=== PATIENT | female | born 1990 | race Caucasian/White ===

== ENCOUNTER 2017-01-17 17:16 | Emergency (ER) | payer OTHER ==
[~2017-01-17 17:16] MED LIST: AMBIEN10 MG PO; CLONAZEPAM1 MG PO; COLACE 100MG C100 MG PO; NORCO 5-325 TA1 EACH PO; VELIVET PO; VIIBRYD40 MG PO
[2017-01-17 18:16] LABS: HEMOGLOBIN 14.8 gm/dl (12.3-15.3); RED BLOOD COUNT 4.75 M/UL (4.00-5.10); WHITE BLOOD COUNT 15.7 K/UL (4.5-11.0)
[2017-01-17 18:33] LABS: BUN/CREATININE RATIO 15 (0-10)
== END 2017-01-17 21:26 | disposition home or self-care (01) ==
LOC: ER1 17:16
PROVIDERS: Emergency Medicine
DX: O20.0 Threatened abortion (principal); Z3A.08 8 weeks gestation of pregnancy; Z88.2 Allergy status to sulfonamides
CPT/HCPCS: 36415; 76817; 80053; 84702; 85025; 86900; 86901; 96361; 96374; 99284; J2765; J7030

== ENCOUNTER → 2021-11-17 | Outpatient (CLI) | payer OTHER | LOC: KOH-I 15:08 | DX: M54.6 Pain in thoracic spine (principal); M54.2 Cervicalgia; M54.50 Low back pain, unspecified; M40.50 Lordosis, unspecified, site unspecified | CPT/HCPCS: 72040; 72070; 72100 ==